=== PATIENT | female | born 1995 ===

== ENCOUNTER 2020-09-26 09:39 | Inpatient (IN) | payer OTHER ==
[~2020-09-26] VITALS: Ht 10.2 cm; Wt 56.7 kg
--- NOTE | 2020-09-26 12:57 | NUR ---
PACIENTE ALERTA Y ORIENTADA EN GIOVANNA JEWEL ESFERAS, ES ORIENTADA SOBRE ORDENES MEDICAS, REFIERE ENTENDER. SE COLECTAN MUESTRAS DE LANNY, SE CANALIZA VENA Y SE ADMINISTRAN MEDICAMENTOS.
== END 2020-09-29 17:05 | disposition home or self-care (01) | DRG 866 ==
LOC: ER 09:39 → MEDI 14:47
PROVIDERS: ADMIT Internal Medicine; ATTEND Internal Medicine
DX: A90 Dengue fever [classical dengue] (principal); E86.0 Dehydration; D69.6 Thrombocytopenia, unspecified; Z20.828 Contact with and (suspected) exposure to other viral communicable diseases

== ENCOUNTER 2025-06-24 09:44 | Outpatient (CLI) | payer OTHER | END 2025-06-24 09:46 | disposition home or self-care (01) | LOC: MAMO-SONO 09:44 | PROVIDERS: ATTEND Obstetrics & Gynecology | DX: N60.11 Diffuse cystic mastopathy of right breast (principal); N60.12 Diffuse cystic mastopathy of left breast; N63 Unspecified lump in breast; N60.01 Solitary cyst of right breast ==